=== PATIENT | male | born 1990 | race Two or more races ===

== ENCOUNTER 2023-03-17 11:50 | Emergency (ER) | payer BC, MEDICAID ==
[~2023-03-17] VITALS: Ht 177.8 cm; Wt 125.7 kg
[2023-03-17] MEDS ORDERED: IBUP600T28 PO (14:36)
[2023-03-17 14:52] VITALS: BP 127/77
== END 2023-03-17 14:51 | disposition home or self-care (01) ==
LOC: ER 11:50
DX: S83.92XA Sprain of unspecified site of left knee, initial encounter (principal); J45.909 Unspecified asthma, uncomplicated; Y93.39 Activity, other involving climbing, rappelling and jumping off; Y93.89 Activity, other specified; Y92.89 Other specified places as the place of occurrence of the external cause; Y99.8 Other external cause status
CPT/HCPCS: 73562